=== PATIENT | female | born 1955 | race Caucasian/White ===

== ENCOUNTER → 2017-09-09 | Outpatient (CLI) | payer BC ==
[~2017-09-09] MED LIST: LEVOFLOXACIN 500 MG PREMIX INJ 100 ML IV ONE
--- NOTE | 2017-09-09 12:21 | RADRPT ---
EXAM DATE: 09/09/2017 10:53 AM EDT AGE/SEX: 62 years / Female INDICATIONS: Evaluate for pneumonia, pneumothorax or communicable disease. Pre op right knee scope. CLINICAL DATA: This is the patient's initial encounter. Patient reports that signs and symptoms have been present for 1 day and indicates a pain score of 0/10. MEDICAL/SURGICAL HISTORY: None. None. COMPARISON: No prior exams available for comparison. FINDINGS: PA and lateral views of the chest demonstrate the lungs to be symmetrically aerated without evidence of mass, infiltrate or effusion. Minimal linear atelectasis or scarring right lung base. Mild scolios is. The cardiomediastinal contours are unremarkable. Osseous structures are intact. CONCLUSION: No acute findings. Minimal scarring right lung base. Mild scoliosis. Electronically signed by: Ollie Jiang MD 09/09/2017 12:20 PM EDT
--- NOTE | 2017-09-09 22:34 | EKG ---
Date Performed: 09/09/2017 Time Performed: 10:28:21 PTAGE: 62 years EKG: Sinus rhythm POSSIBLE RIGHT VENTRICULAR CONDUCTION DELAY NONSPECIFIC T-WAVE ABNORMALITY BORDERLINE ECG NO PREVIOUS TRACING DOCTOR: Evan Asher Interpretating Date/Time 09/09/2017 22:33:12
== END ==
LOC: CPRE 09:44
PROVIDERS: ATTEND Orthopaedic Surgery
DX: Z01.810 Encounter for preprocedural cardiovascular examination (principal); Z01.811 Encounter for preprocedural respiratory examination; Z01.812 Encounter for preprocedural laboratory examination; Z01.818 Encounter for other preprocedural examination; M17.11 Unilateral primary osteoarthritis, right knee; R94.31 Abnormal electrocardiogram [ECG] [EKG]
CPT/HCPCS: 71046; 93005; J1956